=== PATIENT | male | born 1955 | race Caucasian/White ===

== ENCOUNTER 2021-11-09 09:04 | Outpatient (CLI) | payer OTHER ==
[~2021-11-09 09:04] MED LIST: NABUMETONE500 MG PO; PERCOCET 5/3251 TAB PO
== END 2021-11-09 09:12 | disposition home or self-care (01) ==
LOC: TOM 09:04
PROVIDERS: ATTEND Internal Medicine
DX: R91.1 Solitary pulmonary nodule (principal)

== ENCOUNTER 2023-03-29 07:40 | Outpatient (CLI) | payer OTHER | END 2023-03-29 07:47 | disposition home or self-care (01) | LOC: RAD 07:40 | PROVIDERS: ATTEND Internal Medicine | DX: R16.2 Hepatomegaly with splenomegaly, not elsewhere classified (principal); N28.85 Pyeloureteritis cystica | CPT/HCPCS: 74183; 76700; Q9965; 74182 ==

== ENCOUNTER 2024-03-07 08:44 | Outpatient (CLI) | payer OTHER | END 2024-03-07 08:48 | disposition home or self-care (01) | LOC: MRI 08:44 | PROVIDERS: ATTEND Internal Medicine | DX: N28.89 Other specified disorders of kidney and ureter (principal); D49.511 Neoplasm of unspecified behavior of right kidney | CPT/HCPCS: 74181 ==

== ENCOUNTER 2024-07-09 08:02 | Outpatient (CLI) | payer OTHER | END 2024-07-09 08:08 | disposition home or self-care (01) | LOC: RAD 08:02 | PROVIDERS: ATTEND Surgery | DX: R49.8 Other voice and resonance disorders (principal); E03.9 Hypothyroidism, unspecified; E04.2 Nontoxic multinodular goiter ==

== ENCOUNTER 2024-10-27 10:59 | Outpatient (CLI) | payer OTHER | END 2024-10-27 11:07 | disposition home or self-care (01) | LOC: MRI 10:59 | PROVIDERS: ATTEND Internal Medicine | DX: R42 Dizziness and giddiness (principal) | CPT/HCPCS: 70551 ==